=== PATIENT | female | born 1990 | race Caucasian/White ===

== ENCOUNTER 2019-03-09 23:03 | Day surgery (SDC) | payer BC, OTHER ==
--- NOTE | 2019-03-09 23:07 | PDOC ---
History of Present Illness - General Chief Complaint: Pain, Acute Stated Complaint: ABDOMINAL PAIN Time Seen by Provider: 03/09/19 23:06 - History of Present Illness Initial Comments: This otherwise healthy 29 y.o woman presents with 1 day history of periumbilical abdominal pain. Patient awakened with discomfort in the mid- abdomen which became somewhat more severe throughout the day. Mild nausea, but no vomiting/fever/chills/constipation. Was able to eat dinner in early evening without vomiting. No recent sick contacts or travel. No dysuria/frequency or hematuria Past History - Past Medical History Allergies/Adverse Reactions: Allergies Allergy/AdvReac Type Severity Reaction Status Date / Time No Known Allergies Allergy Verified 03/09/19 23:04 Home Medications: Ambulatory Orders NK [No Known Home Medication] 03/09/19 Review of Systems - Review of Systems Comments:: GENERAL/CONSTITUTIONAL: No fever or chills. No weakness. HEAD, EYES, EARS, NOSE AND THROAT: No change in vision. No ear pain or discharge. No sore throat. CARDIOVASCULAR: No chest pain or shortness of breath. RESPIRATORY: No cough, wheezing, or hemoptysis. GASTROINTESTINAL: No nausea, vomiting, diarrhea or constipation. GENITOURINARY: No dysuria, frequency, or change in urination. MUSCULOSKELETAL: No joint or muscle swelling or pain. No neck or back pain. SKIN: No rash NEUROLOGIC: No headache, vertigo, loss of consciousness, or change in strength/ sensation. ENDOCRINE: No increased thirst. No abnormal weight change. HEMATOLOGIC/LYMPHATIC: No anemia, easy bleeding, or history of blood clots. ALLERGIC/IMMUNOLOGIC: No hives or skin allergy. *Physical Exam - Physical Exam Comments: GENERAL: Awake, alert, and fully oriented, in no acute distress HEAD: No signs of trauma EYES: PERRLA, EOMI, sclera anicteric, conjunctiva clear ENT: Auricles normal inspection, hearing grossly normal, nares patent, oropharynx clear without exudates. Moist mucosa NECK: Normal ROM, supple, no lymphadenopathy, JVD, or masses LUNGS: Breath sounds equal, clear to auscultation bilaterally. No wheezes, and no crackles HEART: Regular rate and rhythm, normal S1 and S2, no murmurs, rubs or gallops ABDOMEN: Soft, normoactive bowel sounds. moderate RLQ tenderness No guarding, no rebound. No masses EXTREMITIES: Normal range of motion, no edema. No clubbing or cyanosis. No cords, erythema, or tenderness NEUROLOGICAL: Cranial nerves II through XII grossly intact. Normal speech, normal gait SKIN: Warm, Dry, normal turgor, no rashes or lesions noted. ED Treatment Course - LABORATORY CBC & Chemistry Diagram: 03/09/19 23:15 03/09/19 23:15 Medical Decision Making - Medical Decision Making 03/10/19 01:48 lab evaluation notable for WBC of 14,400 remainder of labs essentially normal except for evidence of mild pre-renal azotemia(bun19/cre1.0) patient received 1liter of NS IV and oral contrast for Abd/pelvic CT CT with oral and IV contrast: Preliminary interpretation by Imaging public relations associate: dilated appendix and minimally inflamed with no perforation or abscess. Remainder of CT is normal. Patient received 3.375g Zosyn IV and 1 gram Acetaminophen IV She requested [facility] for surgical consult. Case discussed by telephone with Dr Nielsen. He has accepted patient to his service and will see the patient in the AM. 03/10/19 02:37 Patient requested medication for recurrence of pain(was relieved by acetaminophen initially) and worsening of nausea. 30mg Toradol IV and Zofran 4mg IV given *DC/Admit/Observation/Transfer Diagnosis at time of Disposition: Acute appendicitis Qualifiers: Acute appendicitis type: unspecified acute appendicitis type Qualified Code(s) : K35.80 - Unspecified acute appendicitis - Discharge Dispostion Condition at time of disposition: Stable Decision to Admit order: Yes - Referrals - Patient Instructions - Post Discharge Activity
[2019-03-09 23:22] VITALS: BMI 27.4
[2019-03-09 23:26] LABS: BASO % 1.8 % (0-2.0); HEMATOCRIT 43.8 % (32.4-45.2); HEMOGLOBIN 14.8 GM/dl (10.7-15.3); LYMPH % 16.4 % (8-40); MCHC 33.9 g/dl (32.0-36.0); MEAN CELL VOLUME 88.4 fl (80-96); MEAN PLT VOLUME 9.1 fl (7.5-11.1); MONO % 5.2 % (3.8-10.2); NEUT % 74.6 % (42.8-82.8); PLATELET COUNT 293 K/MM3 (134-434); RBC 4.95 M/mm3 (3.60-5.2); RDW 12.8 % (11.6-15.6); WHITE BLOOD COUNT 14.4 K/mm3 (4.0-10.8)
[2019-03-09 23:29] LABS: HCG,QUALITATIVE URINE Negative
[2019-03-09 23:39] LABS: ALBUMIN 4.2 g/dl (3.4-5.0); ALK PHOS 55 U/L (45-117); ANION GAP 11 MMOL/L (8-16); BILIRUBIN,TOTAL 0.7 mg/dl (0.2-1); BLOOD UREA NITROGEN 19 mg/dl (7-18); CALCIUM 9.5 mg/dl (8.5-10); CHLORIDE 103 mmol/L (98-107); CO2 22 mmol/L (21-32); CREATININE 0.9 mg/dl (0.55-1.3); GLUCOSE,RANDOM 125 mg/dl (74-106); POTASSIUM 3.5 mmol/L (3.5-5.1); SGOT/AST 23 U/L (15-37); SGPT/ALT 37 U/L (13-61); SODIUM 136 mmol/L (136-145)
[2019-03-10] MEDS ORDERED: ACETAMINOPHEN 1000 MG/100 ML VIAL (NON FORMULARY) IVPB ONE (01:12)
[2019-03-10] MEDS ORDERED: ACETAMINOPHEN INJECTION 100 ML IVPB ONE (01:12)
[2019-03-10] MEDS ORDERED: PIPERACILLIN/TAZOBACTAM 3.375 GM VIAL IVPB ONE ×3 (01:50→21:41)
[2019-03-10] MEDS ORDERED: PIPERACILLIN/TAZOB 3.375 GM 3.375 GM in DEXTROSE 5%-WATER - 50 ML IVPB ONE (01:50)
[2019-03-10] MEDS ORDERED: ONDANSETRON 4 MG/2 ML VIAL ONE ×3 (02:16→15:10)
[2019-03-10] MEDS ORDERED: ONDANSETRON 4 MG/2 ML VIAL IVPUSH ONE ×3 (02:16→15:12)
[2019-03-10] MEDS ORDERED: KETOROLAC TROMETHAMINE 30 MG/1 ML VIAL IVPUSH ONE (02:16)
[2019-03-10] MEDS ORDERED: KETOROLAC TROMETHAMINE 30 MG/1 ML VIAL ONE ×2 (02:17→14:08)
[2019-03-10] MEDS ORDERED: SODIUM CHLORIDE 1,000 ML IV SCH ×2 (06:00→10:19)
[2019-03-10] MEDS ORDERED: PIPERACILLIN/TAZOB 3.375 GM 3.375 GM in DEXTROSE 5%-WATER - 50 ML IVPB SCH (08:15)
[2019-03-10] MEDS ORDERED: DEXTROSE 5%-WATER - 50 ML IVPB ONE ×2 (09:16→21:41)
[2019-03-10] MEDS: PIPERACILLIN/TAZOB 3.375 GM 3.375 GM in DEXTROSE 5%-WATER - 50 ML IVPB SCH ×3 (09:21→21:51)
[2019-03-10] MEDS ORDERED: ACETAMINOPHEN 1000 MG/100 ML VIAL (NON FORMULARY) IVPB PRN (09:42)
[2019-03-10] MEDS ORDERED: morphine CARPU-JECT 2 MG/1 ML DISP.SYRIN IVPUSH PRN (09:43)
--- NOTE | 2019-03-10 09:44 | HP ---
CHIEF COMPLAINT: Abdominal pain HISTORY OF PRESENT ILLNESS: 29 year-old female with no significant PMH presented to ED with periumbilical pain x 1 day. She awakened yesterday with discomfort in the mid-abdomen which became somewhat more severe throughout the day. She had mild nausea, but no fever, chills, or vomiting. The pain became progressively worse so she came to the ED. ER course was notable for: (1) WBC 14.4k (2) CTAP: acute appendicitis without abscess (3) Zosyn x 1 Recent Travel: No PAST MEDICAL HISTORY: None reported PAST SURGICAL HISTORY: None reported Social History: Smoking: current every day Alcohol: no Drugs: no Family History: Father with glioblastoma Allergies No Known Allergies Allergy (Verified 03/09/19 23:04) HOME MEDICATIONS: Home Medications Medication Instructions Recorded NK [No Known Home Medication] 03/09/19 REVIEW OF SYSTEMS CONSTITUTIONAL: Absent: fever, chills, diaphoresis, generalized weakness, malaise, loss of appetite, weight change HEENT: Absent: rhinorrhea, nasal congestion, throat pain, throat swelling, difficulty swallowing, mouth swelling, ear pain, eye pain, visual changes CARDIOVASCULAR: Absent: chest pain, syncope, palpitations, irregular heart rate, lightheadedness , peripheral edema RESPIRATORY: Absent: cough, shortness of breath, dyspnea with exertion, orthopnea, wheezing, stridor, hemoptysis GASTROINTESTINAL: +abdominal pain Absent: abdominal distension, nausea, vomiting, diarrhea, constipation, melena , hematochezia GENITOURINARY: Absent: dysuria, frequency, urgency, hesitancy, hematuria, flank pain, genital pain MUSCULOSKELETAL: Absent: myalgia, arthralgia, joint swelling, back pain, neck pain SKIN: Absent: rash, itching, pallor HEMATOLOGIC/IMMUNOLOGIC: Absent: easy bleeding, easy bruising, lymphadenopathy, frequent infections ENDOCRINE: Absent: unexplained weight gain, unexplained weight loss, heat intolerance, cold intolerance NEUROLOGIC: Absent: headache, focal weakness or paresthesias, dizziness, unsteady gait, seizure, mental status changes, bladder or bowel incontinence PSYCHIATRIC: Absent: anxiety, depression, suicidal or homicidal ideation, hallucinations. PHYSICAL EXAMINATION Vital Signs - 24 hr 03/09/19 03/10/19 03/10/19 23:17 02:45 03:18 Temperature 99 F 98 F 98 F Pulse Rate 94 H Pulse Rate [ 75 Left] Respiratory 16 16 16 Rate Blood Pressure 148/89 Blood Pressure 105/70 [Left] O2 Sat by Pulse 100 100 100 Oximetry (%) 03/10/19 06:00 Temperature 97.8 F Pulse Rate 72 Pulse Rate [ Left] Respiratory 18 Rate Blood Pressure 107/54 L Blood Pressure [Left] O2 Sat by Pulse 100 Oximetry (%) GENERAL: Awake, alert, and fully oriented, in no acute distress. HEAD: Normal with no signs of trauma. EYES: Pupils equal, round and reactive to light, extraocular movements intact, sclera anicteric, conjunctiva clear. No lid lag. EARS, NOSE, THROAT: Ears normal, nares patent, oropharynx clear without exudates. Moist mucous membranes. NECK: Normal range of motion, supple without lymphadenopathy, JVD, or masses. LUNGS: Breath sounds equal, clear to auscultation bilaterally. No wheezes, and no crackles. No accessory muscle use. HEART: Regular rate and rhythm, normal S1 and S2 without murmur, rub or gallop. ABDOMEN: RLQ tenderness with rebound MUSCULOSKELETAL: Normal range of motion at all joints. No bony deformities or tenderness. No CVA tenderness. UPPER EXTREMITIES: 2+ pulses, warm, well-perfused. No cyanosis. No clubbing. No peripheral edema. LOWER EXTREMITIES: 2+ pulses, warm, well-perfused. No calf tenderness. No peripheral edema. NEUROLOGICAL: Cranial nerves II-XII intact. Normal speech. Laboratory Results - last 24 hr 03/09/19 03/09/19 03/09/19 23:15 23:15 23:15 WBC 14.4 H RBC 4.95 Hgb 14.8 Hct 43.8 MCV 88.4 MCH 30.0 MCHC 33.9 RDW 12.8 Plt Count 293 MPV 9.1 Absolute Neuts (auto) 10.7 Neutrophils % 74.6 Lymphocytes % 16.4 Monocytes % 5.2 Eosinophils % 2.0 Basophils % 1.8 Sodium 136 Potassium 3.5 Chloride 103 Carbon Dioxide 22 Anion Gap 11 BUN 19 H Creatinine 0.9 Creat Clearance w eGFR 74.03 Random Glucose 125 H Calcium 9.5 Total Bilirubin 0.7 AST 23 ALT 37 Alkaline Phosphatase 55 Total Protein 7.0 Albumin 4.2 Urine Color Yellow Urine Appearance Clear Urine pH 6.0 Urine Protein Negative Urine Glucose (UA) Negative Urine Ketones Negative Urine Blood Negative Urine Nitrite Negative Urine Bilirubin Negative Urine Urobilinogen 0.2 Ur Leukocyte Esterase Negative Urine HCG, Qual Negative ASSESSMENT/PLAN 29 year-old female with no significant PMH here for acute appendicitis. Acute appendicitis --plan is for OR today --continue Zosyn --continue IV fluids --NPO Dispo: full code. Visit type - Emergency Visit Emergency Visit: Yes Care time: The patient presented to the Emergency Department on the above date and was hospitalized for further evaluation of their emergent condition. - New Patient This patient is new to me today: Yes Date on this admission: 03/10/19 - Critical Care Critical Care patient: No
[2019-03-10] MEDS ORDERED: ONDANSETRON 4 MG/2 ML VIAL IVPUSH PRN ×2 (10:00→15:15)
[2019-03-10] MEDS ORDERED: ROCURONIUM BROMIDE 50 MG/5 ML VIAL ONE (13:31)
[2019-03-10] MEDS ORDERED: fentaNYL CITRATE 250 MCG/5 ML VIAL ONE (13:31)
[2019-03-10] MEDS ORDERED: MIDAZOLAM HCL 2 MG/2 ML SINGLE DOSE VIAL ONE (13:31)
[2019-03-10] MEDS ORDERED: PROPOFOL 20 ML ONE ×3 (13:31→13:32)
[2019-03-10] MEDS ORDERED: LIDOCAINE HCL/PF 2% SDV 5ML VIAL ONE (13:32)
--- NOTE | 2019-03-10 13:48 | PN ---
Progress Note (short form) - Note Progress Note: surgery pt seen and examined. full consult dictated. 29f with 24hour rlq pain, leukocytosis, and ct evidence of appendicitis. on exam rlq tenderness with rebound. Plan- clinically acute appendicitis. agree with admission and zosyn. for surgery.
[2019-03-10] MEDS ORDERED: oxyCODONE HCL 5 MG TABLET PO PRN ×3 (13:49→15:15)
[2019-03-10] MEDS ORDERED: morphine SULFATE 4 MG/ML VIAL IVPB PRN (13:49)
--- NOTE | 2019-03-10 13:52 | OP ---
Operative Note - Note: Operative Date: 03/10/19 Pre-Operative Diagnosis: acute appendicitis Operation: laparoscopic appendectomy Findings: thickened, inflamed, non perforated appendix Post-Operative Diagnosis: Same as Pre-op Surgeon: Camilo Shah Anesthesiologist/SHOULDER SAWYER: Johan Boss Anesthesia: General Specimens Removed: appendix Estimated Blood Loss (mls): 10 Operative Report Dictated: Yes
[2019-03-10] MEDS ORDERED: DEXAMETHASONE SOD PHOSPHATE 4 MG/1 ML VIAL ONE (14:08)
--- NOTE | 2019-03-10 14:20 | CONS ---
DATE OF CONSULTATION: 03/10/2019 REASON FOR CONSULTATION: Acute appendicitis. This is an emergency room consultation. BRIEF HISTORY: This is a 29-year-old female who presented to [facility] with less than 24 hours of right lower quadrant abdominal pain. She was noted to have an elevated white blood cell count and had a CAT scan of her abdomen and pelvis which was consistent with acute appendicitis. She was admitted to the hospital, started on Zosyn antibiotic. Request is made for surgical evaluation. Overnight she still has pain. She has had no fever. She has no nausea, no vomiting. PAST MEDICAL HISTORY: Negative. PAST SURGICAL HISTORY: Nil. SOCIAL HISTORY: Positive for tobacco. She has been encouraged to quit. FAMILY HISTORY: Positive for a father with a glioblastoma. She takes no medications. She has no known drug allergies. REVIEW OF SYSTEMS: General: Denies fever, malaise. Cardiac: Denies chest pain or palpitations. Respiratory: Denies shortness of breath or wheeze. Gastrointestinal: As stated in HPI. Denies diarrhea. Denies blood in her stool. Denies recent weight loss. Genitourinary: Denies dysuria. Musculoskeletal: Denies joint pain. Psychiatric: Denies depression, hearing voices. PHYSICAL EXAMINATION: General: This is a well-developed, well-nourished 29-year-old female in n distress.Vital Signs: She is afebrile. HEENT: Her head is normocephalic. Sclerae anicteric. Neck: Supple. Chest: Clear. Abdomen: Soft. She has localized right lower quadrant tenderness with rebound. She has no surgical scars. No obvious hernias. Extremities: Have no edema. On review of her laboratory white blood cell count is elevated at 14,000. Her chemistries are unremarkable. Her urinalysis is unremarkable. On review of her imaging she has a CAT scan of her abdomen and pelvis which shows findings consistent with acute appendicitis, uncomplicated. ASSESSMENT: This is a 29-year-old female with right lower quadrant pain, right lower quadrant tenderness, rebound, leukocytosis, CAT scan evidence of acute appendicitis. Clinically this is acute appendicitis. I agree with admission. I agree with Zosyn antibiotic to cover E coli and other enteric as well as gram-negative and anaerobic bacteria. At this point would recommend moving in the direction of surgery. Risks and benefits of surgery have been explained to patient in detail. These are including but not limited to the possibility of conversion to open, the possibility of injury to viscera or bladder, the possibility of blood loss requiring blood transfusion, possibility of future obstruction, possibility of future hernia, plus the multiple medical risks including but not limited to cardiac, neurologic, pulmonary and vascular complications, even . Patient understands these risks and is agreeable to surgery. Patient has also been offered medical management for appendicitis and declines. She prefers the more definitive nature of surgery, the likely decreased length of stay, the ability to pathologically evaluate the appendix and prevention of future recurrence. GEENT TREVIZO M.D. [id number]
[2019-03-10] MEDS ORDERED: GLYCOPYRROLATE 0.2 MG/1 ML VIAL ONE (14:38)
[2019-03-10] MEDS ORDERED: PROMETHAZINE HCL 25 MG/1 ML VIAL IVPB PRN (15:15)
--- NOTE | 2019-03-10 20:25 | OP ---
DATE OF OPERATION: 03/10/2019 PREOPERATIVE DIAGNOSIS: Acute appendicitis. POSTOPERATIVE DIAGNOSIS: Acute appendicitis. PROCEDURE: Laparoscopic appendectomy, lavage. SURGEON: Camilo Shah DO SALES OUTFITTER: None. ANESTHESIOLOGIST: Johan Boss MD SPECIMEN: Appendix. INTRAOPERATIVE FINDINGS: A thick and inflamed, non-perforated appendix. BLOOD LOSS: Minimal. DRAINS: None. COMPLICATIONS: None. DISPOSITION: Recovery room in stable condition. BRIEF HISTORY: This 29-year-old female presented to [facility] with signs and symptoms of acute appendicitis and CAT scan evidence to support that. She presents now for surgery. DESCRIPTION OF PROCEDURE: The patient was placed in supine position. After general anesthesia was initiated, Sharp catheter was inserted, and the abdomen was prepped and draped in sterile fashion. The patient was already on Zosyn antibiotic. Next, a vertical incision was made infraumbilical with scalpel used to go through skin and subcutaneous tissue. The fascia was lifted with Foreign clamp and incised vertically. The peritoneum was entered bluntly. Next, a 0 Vicryl stitch was placed across the fascial defect and used to secure the Milagro trocar. Pneumoperitoneum was then created, followed by insertion of two 5-mm trocars, one suprapubic and one in the left lower quadrant. Attention was turned to the right lower quadrant. The appendix was seen. It was thick and inflamed. The appendix was wrapped over it, and it was carefully teased off. The ligament of Treves was also attached to the appendix, and this was divided with LigaSure device. The cecal cap was also wrapped around the appendix. This was carefully teased off. A window was made at this space. The LigaSure device was used to divide the mesoappendix with multiple welds. The Endo JODY ultra 60-load, purple-load stapler was used to divide the appendix at its base and 1 firing. The staple line was inspected. It was intact. There was no bleeding. No breaks. No sign of ischemia. The appendix was placed in a specimen bag, removed through the infraumbilical trocar site, and sent to Pathology marked as specimen. A limited lavage was done, and all return was clear. Trocars were removed under direct visualization. No bleeding was noted. Next, the fascia at the infraumbilical trocar site was closed with multiple interrupted 0 Vicryl sutures. The 3 skin incisions were closed with Biosyn. Dermabond dressing was placed. Overall, the patient tolerated the procedure well. Sharp catheter, placed at the beginning of the operation, was removed at the end. DO GUICHO KAYE/[id number] MTDD
[2019-03-11] MEDS ORDERED: DEXTROSE 5%-WATER - 50 ML IVPB ONE ×3 (02:54→09:48)
[2019-03-11] MEDS ORDERED: PIPERACILLIN/TAZOBACTAM 3.375 GM VIAL IVPB ONE ×3 (02:54→09:48)
[2019-03-11] MEDS: PIPERACILLIN/TAZOB 3.375 GM 3.375 GM in DEXTROSE 5%-WATER - 50 ML IVPB SCH ×2 (03:15→09:30)
[2019-03-11] MEDS ORDERED: SODIUM CHLORIDE 1,000 ML IV STA (06:40)
--- NOTE | 2019-03-11 08:42 | DS ---
Physical Exam: SUBJECTIVE: Patient seen and examined at bedside. Eating soup. Feels well, no pain, no n/v. OBJECTIVE: Vital Signs Period Temp Pulse Resp BP Sys/Pierce Pulse Ox Last 24 Hr 97.4 F-98.3 F 60-100 10-18 93-109/43-69 97-100 PHYSICAL EXAM GENERAL: The patient is awake, alert, and fully oriented, in no acute distress. LUNGS: Breath sounds equal, clear to auscultation bilaterally, no wheezes, no crackles, no accessory muscle use. HEART: Regular rate and rhythm, S1, S2 without murmur, rub or gallop. ABDOMEN: Soft, nondistended, three surgical ports with glue, dry, intact, no surrounding erythema, fluctuance EXTREMITIES: 2+ pulses, warm, well-perfused, no edema. NEUROLOGICAL: Cranial nerves II through XII grossly intact. Normal speech, steady gait LABS CBCD WBC 16.4 K/mm3 (4.0-10.8) H 03/11/19 07:42 RBC 3.93 M/mm3 (3.60-5.2) 03/11/19 07:42 Hgb 12.1 GM/dl (10.7-15.3) 03/11/19 07:42 Hct 34.7 % (32.4-45.2) D 03/11/19 07:42 MCV 88.4 fl (80-96) 03/11/19 07:42 MCHC 34.8 g/dl (32.0-36.0) 03/11/19 07:42 RDW 13.1 % (11.6-15.6) 03/11/19 07:42 Plt Count 238 K/MM3 (134-434) 03/11/19 07:42 MPV 9.4 fl (7.5-11.1) 03/11/19 07:42 CMP Sodium 139 mmol/L (136-145) 03/11/19 07:42 Potassium 3.8 mmol/L (3.5-5.1) 03/11/19 07:42 Chloride 111 mmol/L (98-107) H 03/11/19 07:42 Carbon Dioxide 21 mmol/L (21-32) 03/11/19 07:42 Anion Gap 7 MMOL/L (8-16) L 03/11/19 07:42 BUN 11 mg/dl (7-18) 03/11/19 07:42 Creatinine 0.9 mg/dl (0.55-1.3) 03/11/19 07:42 Creat Clearance w eGFR 74.03 (>60) 03/11/19 07:42 Calcium 8.6 mg/dl (8.5-10) 03/11/19 07:42 Total Bilirubin 0.5 mg/dl (0.2-1) 03/11/19 07:42 AST 15 U/L (15-37) 03/11/19 07:42 ALT 25 U/L (13-61) 03/11/19 07:42 Alkaline Phosphatase 46 U/L (45-117) 03/11/19 07:42 Total Protein 5.8 g/dl (6.4-8.2) L 03/11/19 07:42 Albumin 3.1 g/dl (3.4-5.0) L 03/11/19 07:42 HOSPITAL COURSE: Date of Admission:03/10/19 Date of Discharge: 03/11/19 Pre hospital course 29 year-old female with no significant PMH presented to ED with periumbilical pain x 1 day. She awakened with discomfort in the mid-abdomen which became somewhat more severe throughout the day. She had mild nausea, but no fever, chills, or vomiting. The pain became progressively worse so she came to the ED. ER course (1) WBC 14.4k (2) CTAP: acute appendicitis without abscess (3) Zosyn x 1 Subsequent hospital course 29 year-old female with no significant PMH here for acute appendicitis. Acute appendicitis --POD#1 s/p laparoscopic appendectomy; thickened, inflamed, not perforated --treated with Zosyn while inpatient, discharged on augmentin x 5 days --uncomplicated post-operative course Minutes to complete discharge: 35 Discharge Summary Reason For Visit: ACUTE APPENDICITIS Current Active Problems Acute appendicitis (Acute) Condition: Improved - Instructions Diet, Activity, Other Instructions: You need to follow up with your surgeon, Dr. Shah, in two weeks. His contact information is enclosed in this discharge packet. Take Tyelenol for pain, do not exceed 4,000mg in any 24 hour period. You may shower. Do not lift anything heavier than 5 pounds until you see Dr. Shah. Return to the emergency department for any new or worsening symptoms. Referrals: Camilo Shah MD [Staff Physician] - Disposition: HOME - Home Medications Comprehensive Discharge Medication List: Ambulatory Orders NK [No Known Home Medication] 03/09/19 This patient is new to me today: No Emergency Visit: Yes Care time: The patient presented to the Emergency Department on the above date and was hospitalized for further evaluation of their emergent condition. Critical Care patient: No - Discharge Referral Referred to [facility] No
[2019-03-11 08:50] LABS: HEMATOCRIT 34.7 % (32.4-45.2); HEMOGLOBIN 12.1 GM/dl (10.7-15.3); MCH 30.8 pg (25.7-33.7); MCHC 34.8 g/dl (32.0-36.0); MEAN CELL VOLUME 88.4 fl (80-96); MEAN PLT VOLUME 9.4 fl (7.5-11.1); PLATELET COUNT 238 K/MM3 (134-434); RBC 3.93 M/mm3 (3.60-5.2); RDW 13.1 % (11.6-15.6); WHITE BLOOD COUNT 16.4 K/mm3 (4.0-10.8)
[2019-03-11 09:10] LABS: ALBUMIN 3.1 g/dl (3.4-5.0); ALK PHOS 46 U/L (45-117); ANION GAP 7 MMOL/L (8-16); BILIRUBIN,TOTAL 0.5 mg/dl (0.2-1); BLOOD UREA NITROGEN 11 mg/dl (7-18); CALCIUM 8.6 mg/dl (8.5-10); CHLORIDE 111 mmol/L (98-107); CO2 21 mmol/L (21-32); CREATININE 0.9 mg/dl (0.55-1.3); GLUCOSE,RANDOM 122 mg/dl (74-106); MAGNESIUM 2.1 mg/dL (1.8-2.4); POTASSIUM 3.8 mmol/L (3.5-5.1); SGOT/AST 15 U/L (15-37); SGPT/ALT 25 U/L (13-61); SODIUM 139 mmol/L (136-145); TOT PROT 5.8 g/dl (6.4-8.2)
[2019-03-11 09:56] VITALS: BP 108/61; PULSE 71; TEMP 99
[2019-03-11] MEDS ORDERED: ENOXAPARIN NA (PORCINE) 40 MG/0.4 ML DISP.SYRIN SQ SCH (10:00)
[2019-03-11] MEDS ORDERED: PANTOPRAZOLE SODIUM 40 MG VIAL IVPUSH SCH (10:00)
[2019-03-11 11:13] LABS: PLATELET ESTIMATE SLT INCREASE
--- NOTE | 2019-03-11 12:52 | PN ---
Progress Note (short form) - Note Progress Note: Anesthesia post op note POD#1, S/p Lap appendectomy under general anesthesia. VSS. Pain 0/10. No apparent post anesthesia complications. Signed off.
== END 2019-03-11 13:25 | disposition home or self-care (01) ==
LOC: FER 23:03 → FM/S 03-10 02:45 → UNDOADMIN 03-10 02:45 → FASUSAT 03-10 09:54 → FM/S 03-10 09:54 → FASUSAT 03-11 13:25
PROVIDERS: ATTEND Nurse Practitioner Acute Care
PROC: 0DTJ4ZZ Resection of Appendix, Percutaneous Endoscopic Approach (ICD-10-PCS; principal; 2019-03-10 14:22)
DX: K35.80 Unspecified acute appendicitis (principal)
CPT/HCPCS: 36415; 74177-TC; 80053; 81003; 83735; 84703; 85025; 86850; 86900; 86901; 87086; 88304-TC; 94760; 99282-25; J0131; J7030

== ENCOUNTER 2021-05-20 20:50 | Inpatient (IN) | payer BC, OTHER ==
[2021-05-20 22:53] LABS: INR 0.85 (0.83-1.09); PROTHROMBIN TIME (PATIENT) 10.3 SEC (9.7-13.0)
[2021-05-20 22:56] LABS: ACTIVATED PTT 24.3 SECONDS (25.2-36.5)
[2021-05-20 23:05] LABS: CALCIUM 8.3 mg/dL (8.5-10.1)
[2021-05-20 23:06] LABS: BLOOD UREA NITROGEN 13.7 mg/dL (7-18)
[2021-05-20] MEDS ORDERED: PROMETHAZINE HCL 25 MG/1 ML VIAL IVPUSH ONE (23:08)
[2021-05-20] MEDS ORDERED: BUTORPHANOL TARTRATE 1 MG/ML VIAL IVPUSH PRN (23:08)
[2021-05-20 23:09] LABS: CREATININE 0.8 mg/dL (0.55-1.3)
[2021-05-20] MEDS ORDERED: DEXTROSE 5%-LACTATED RINGERS 1,000 ML IV SCH (23:15)
[2021-05-20 23:48] VITALS: BMI 33.1
[2021-05-21 00:02] LABS: HIV INTERPRETATION NEGATIVE (NEGATIVE)
[2021-05-21] MEDS ORDERED: OXYTOCIN 30 UNITS in 0.9% NS 30 UNIT/500 ML INFUS.BAG IVPB ONE (08:09)
[2021-05-21] MEDS: OXYTOCIN 30 UNITS in 0.9% NS 30 UNIT/500 ML INFUS.BAG IVPB SCH (08:30)
[2021-05-21] MEDS ORDERED: BUTORPHANOL TARTRATE 2 MG/ML VIAL ONE (09:34)
[2021-05-21] MEDS ORDERED: PROMETHAZINE HCL 25 MG/1 ML VIAL ONE (09:34)
[2021-05-21] MEDS ORDERED: PCA PUMP NR ONE ×2 (11:49→21:25)
[2021-05-21] MEDS ORDERED: FENTANYL/BUPIVACAINE/NS/PF - PCEA - 50 ML DISP.SYRIN EP ONE ×4 (11:49→21:24)
[2021-05-21] MEDS ORDERED: NALOXONE HCL 0.4 MG/ML VIAL IVPUSH PRN (12:00)
[2021-05-21] MEDS ORDERED: FENTANYL/BUPIVACAINE/NS/PF - PCEA - 50 ML DISP.SYRIN EP SCH (12:00)
[2021-05-21] MEDS ORDERED: BUPIVACAINE HCL/PF 0.25% (2.5MG/ML) 10 ML VIAL ONE ×2 (12:07→18:51)
[2021-05-21] MEDS ORDERED: ELECTROLYTE-148 SOLN 1,000 ML IV SCH (12:15)
[2021-05-21 12:27] LABS: BASO % 0.8 % (0-2.0); EOS % 0.3 % (0-4.5); HEMATOCRIT 36.8 % (32.4-45.2); HEMOGLOBIN 11.7 GM/dL (10.7-15.3); MCH 25.3 pg (25.7-33.7); MCHC 31.8 g/dl (32.0-36.0); MEAN CELL VOLUME 79.7 fl (80-96); MEAN PLT VOLUME 8.1 fl (7.5-11.1); MONO % 7.6 % (3.8-10.2); NEUT % 78.3 % (42.8-82.8); PLATELET COUNT 293 10^3/uL (134-434); RBC 4.62 M/mm3 (3.60-5.2); RDW 16.5 % (11.6-15.6); WHITE BLOOD COUNT 11.9 K/mm3 (4.0-10.0)
[2021-05-21] MEDS ORDERED: AMPICILLIN SODIUM 2 GM VIAL ONE (21:22)
[2021-05-21] MEDS ORDERED: AMPICILLIN - 2 GM in SODIUM CHLORIDE 100 ML IVPB ONE (21:35)
[2021-05-21] MEDS ORDERED: OXYTOCIN 20 UNITS in 0.9% NS 20 UNIT/1,000 ML INFUS.BAG IV ONE (22:27)
[2021-05-21] MEDS ORDERED: LIDOCAINE HCL 1% PRESERVATIVE FREE - 30ML VIAL ONE (22:28)
[2021-05-22] MEDS ORDERED: BENZOCAINE 20% 57 GM BOTTLE TP PRN (00:03)
[2021-05-22] MEDS ORDERED: WITCH HAZEL 50% (TUCKS) 40 PAD/JAR PAD TP PRN (00:03)
[2021-05-22] MEDS ORDERED: BISACODYL 10 MG SUPP.RECT RC PRN (00:03)
[2021-05-22] MEDS ORDERED: BENZOCAINE 28 GM HEMORRHOIDAL OINTMENT TP PRN (00:03)
[2021-05-22] MEDS ORDERED: METHYLERGONOVINE MALEATE 0.2 MG/1 ML AMP IM PRN (00:03)
[2021-05-22] MEDS ORDERED: OXYTOCIN 20 UNITS in 0.9% NS 20 UNIT/1,000 ML INFUS.BAG IV SCH (00:15)
[2021-05-22] MEDS ORDERED: OXYTOCIN 20 UNITS in 0.9% NS 20 UNIT/1,000 ML INFUS.BAG IV ONE (00:55)
[2021-05-22 01:19] LABS: CORD BASE EXCESS -11.3 mmol/L (0-2); CORD HCO3 17.8 mmHg (20-29); CORD PCO2 51.4 mmHg (30-78); CORD pH 7.157 (7.14-7.44)
[2021-05-22 01:21] LABS: CORD PCO2 71.5 mmHg (30-78); CORD pH 7.043 (7.14-7.44)
[2021-05-22] MEDS ORDERED: AMPICILLIN - 1 GM in SODIUM CHLORIDE 100 ML IVPB SCH (01:30)
[2021-05-22] MEDS ORDERED: ACETAMINOPHEN 325 MG TABLET (FP) ONE ×2 (04:02→09:01)
[2021-05-22] MEDS: IBUPROFEN 600 MG TABLET (FP) PO PRN ×3 (04:05→20:07)
[2021-05-22] MEDS: ACETAMINOPHEN 325 MG TABLET (FP) PO PRN ×3 (04:05→20:07)
[2021-05-22] MEDS: OXYTOCIN 30 UNITS in 0.9% NS 30 UNIT/500 ML INFUS.BAG IVPB SCH (08:41)
[2021-05-22] MEDS ORDERED: IBUPROFEN 600 MG TABLET (FP) PO ONE (09:01)
[2021-05-22] MEDS ORDERED: FERROUS SO4 325 MG TABLET (FP) ONE (09:02)
[2021-05-22] MEDS ORDERED: PRENATAL VITAMINS W/ FOLIC ACID TABLET (FP) PO ONE (09:02)
[2021-05-22] MEDS: FERROUS SO4 325 MG TABLET (FP) PO SCH ×2 (09:07→21:07)
[2021-05-22] MEDS: PRENATAL VITAMINS W/ FOLIC ACID TABLET (FP) PO SCH (09:07)
[2021-05-23] MEDS: IBUPROFEN 600 MG TABLET (FP) PO PRN ×2 (00:14→10:35)
[2021-05-23] MEDS: ACETAMINOPHEN 325 MG TABLET (FP) PO PRN ×2 (00:14→10:35)
[2021-05-23 08:06] LABS: BASO % 0.4 % (0-2.0); EOS % 1.7 % (0-4.5); HEMATOCRIT 23.4 % (32.4-45.2); HEMOGLOBIN 7.5 GM/dL (10.7-15.3); LYMPH % 18.3 % (8-40); MCH 25.6 pg (25.7-33.7); MEAN CELL VOLUME 79.9 fl (80-96); MEAN PLT VOLUME 7.8 fl (7.5-11.1); MONO % 7.3 % (3.8-10.2); NEUT % 72.3 % (42.8-82.8); PLATELET COUNT 223 10^3/uL (134-434); RBC 2.93 M/mm3 (3.60-5.2); RDW 16.7 % (11.6-15.6); WHITE BLOOD COUNT 14.6 K/mm3 (4.0-10.0)
[2021-05-23] MEDS: FERROUS SO4 325 MG TABLET (FP) PO SCH (10:31)
[2021-05-23] MEDS: PRENATAL VITAMINS W/ FOLIC ACID TABLET (FP) PO SCH (10:31)
[2021-05-23 11:56] VITALS: BP 118/74; PULSE 88; TEMP 98.4
[2021-05-23] MEDS ORDERED: SENNOSIDES/DOCUSATE COMBO (SENNA PLUS) TABLET (UD) PO PRN (22:00)
== END 2021-05-23 15:15 | disposition home or self-care (01) | DRG 807 ==
LOC: JDEL 20:50 → JLDR 21:15 → JDEL 21:20 → J3W 05-22 15:38
PROVIDERS: ADMIT Obstetrics & Gynecology; ATTEND Obstetrics & Gynecology
PROC: 10E0XZZ Delivery of Products of Conception, External Approach (ICD-10-PCS; principal; 2021-05-21)
PROC: 0W8NXZZ Division of Female Perineum, External Approach (ICD-10-PCS; 2021-05-21)
DX: O42.02 Full-term premature rupture of membranes, onset of labor within 24 hours of rupture (principal); Z37.0 Single live birth; Z3A.40 40 weeks gestation of pregnancy
CPT/HCPCS: 36415; 36600; 59409; 80048; 82803; 85025; 85610; 85730; 86780; 86850; 86900; 86901; 87389; C9803; U0003; U0005

== ENCOUNTER 2021-09-30 22:44 | Emergency (ER) | payer BC ==
[2021-09-30] MEDS ORDERED: LIDOCAINE HCL 2% (50ML VIAL) INF ONE (22:53)
[2021-09-30 23:00] VITALS: BP 132/78; PULSE 76; TEMP 99.2; BMI 25.7
[2021-09-30] MEDS ORDERED: CEPHALEXIN MONOHYDRATE 500 MG CAPSULE (UD) PO ONE (23:24)
[2021-09-30] MEDS ORDERED: IBUPROFEN 600 MG TABLET (FP) PO ONE ×2 (23:26→23:31)
[2021-09-30] MEDS ORDERED: CEPHALEXIN MONOHYDRATE 500 MG CAPSULE (UD) ONE (23:31)
== END 2021-09-30 23:34 | disposition home or self-care (01) ==
LOC: FER 22:44
DX: S60.10XA Contusion of unspecified finger with damage to nail, initial encounter (principal)
CPT/HCPCS: 99283-25

== ENCOUNTER 2023-03-28 04:00 | Inpatient (IN) | payer BC ==
[2023-03-28] MEDS ORDERED: ELECTROLYTE-148 SOLN 1,000 ML IV SCH (05:00)
[2023-03-28 05:06] VITALS: BMI 33.8
[2023-03-28 05:33] LABS: BASO % 0.6 % (0-2.0); EOS % 0.9 % (0-4.5); HEMATOCRIT 34.1 % (32.4-45.2); HEMOGLOBIN 11.8 GM/dL (10.7-15.3); LYMPH % 20.6 % (8-40); MCH 27.8 pg (25.7-33.7); MCHC 34.6 g/dl (32.0-36.0); MEAN CELL VOLUME 80.3 fl (80-96); MEAN PLT VOLUME 9.3 fl (7.5-11.1); MONO % 9.6 % (3.8-10.2); NEUT % 68.3 % (42.8-82.8); PLATELET COUNT 224 10^3/uL (134-434); RBC 4.25 M/mm3 (3.60-5.2); RDW 15.9 % (11.6-15.6); WHITE BLOOD COUNT 8.8 K/mm3 (4.0-10.0)
[2023-03-28 06:27] LABS: INR 0.9 (0.83-1.09); PROTHROMBIN TIME (PATIENT) 10.4 SEC (9.7-13.0)
[2023-03-28 06:29] LABS: POTASSIUM 4.4 mmol/L (3.5-5.1)
[2023-03-28 06:30] LABS: ACTIVATED PTT 25.8 SECONDS (25.2-36.5)
[2023-03-28 06:33] LABS: BLOOD UREA NITROGEN 18.4 mg/dL (7-18)
[2023-03-28 06:37] LABS: CREATININE 0.7 mg/dL (0.55-1.3)
[2023-03-28 06:38] LABS: CALCIUM 9.1 mg/dL (8.5-10.1)
[2023-03-28] MEDS ORDERED: OXYTOCIN 30 UNITS in 0.9% NS 30 UNIT/500 ML INFUS.BAG IVPB SCH (08:00)
[2023-03-28] MEDS: ELECTROLYTE-148 SOLN 1,000 ML IV SCH ×2 (11:00→13:45)
[2023-03-28] MEDS ORDERED: FENTANYL/BUPIVACAINE/NS/PF - PCEA - 50 ML DISP.SYRIN EP ONE ×3 (11:01→18:42)
[2023-03-28] MEDS: FENTANYL/BUPIVACAINE/NS/PF - PCEA - 50 ML DISP.SYRIN EP SCH ×3 (11:25→18:45)
[2023-03-28] MEDS ORDERED: NALOXONE HCL 0.4 MG/ML VIAL IVPUSH PRN (11:36)
[2023-03-28] MEDS ORDERED: FENTANYL CITRATE/PF 50 MCG/ML VIAL ONE ×2 (12:20→13:11)
[2023-03-28] MEDS ORDERED: LIDO 2%/EPI 1:200000 PRESRVFRE (20 ML SDVIAL) ONE (13:04)
[2023-03-28] MEDS ORDERED: BUPIVACAINE HCL/PF 0.25% (2.5MG/ML) 10 ML VIAL ONE (13:12)
[2023-03-28 14:10] LABS: POC NITRAZINE POS
[2023-03-28] MEDS ORDERED: OXYTOCIN 20 UNITS in 0.9% NS 20 UNIT/1,000 ML INFUS.BAG IV ONE (19:08)
[2023-03-28] MEDS ORDERED: LIDOCAINE HCL 1% PRESERVATIVE FREE - 30ML VIAL ONE (19:08)
[2023-03-28 20:24] LABS: CORD HCO3 22.1 mmHg (20-29); CORD PCO2 48.1 mmHg (30-78); CORD pH 7.281 (7.14-7.44)
[2023-03-28 20:26] LABS: CORD HCO3 26.3 mmHg (20-29); CORD pH 7.253 (7.14-7.44)
[2023-03-28 20:49] VITALS: RESP 18
[2023-03-28] MEDS ORDERED: WITCH HAZEL 50% (TUCKS) 40 PAD/JAR PAD TP PRN (21:05)
[2023-03-28] MEDS ORDERED: BENZOCAINE 20% 57 GM BOTTLE TP PRN (21:05)
[2023-03-28] MEDS ORDERED: BISACODYL 10 MG SUPP.RECT RC PRN (21:05)
[2023-03-28] MEDS ORDERED: oxyCODONE HCL 5 MG TABLET PO PRN (21:05)
[2023-03-28] MEDS ORDERED: ACETAMINOPHEN 325 MG TABLET (FP) PO PRN (21:05)
[2023-03-28] MEDS ORDERED: BENZOCAINE 28 GM HEMORRHOIDAL OINTMENT TP PRN (21:05)
[2023-03-28] MEDS ORDERED: METHYLERGONOVINE MALEATE 0.2 MG/1 ML AMP IM PRN (21:05)
[2023-03-28] MEDS ORDERED: METHYLERGONOVINE MALEATE 0.2 MG/1 ML AMP IM ONE (21:06)
[2023-03-28] MEDS ORDERED: OXYTOCIN 20 UNITS in 0.9% NS 20 UNIT/1,000 ML INFUS.BAG IV SCH (21:15)
[2023-03-29] MEDS: IBUPROFEN 600 MG TABLET (FP) PO PRN ×3 (00:12→21:35)
[2023-03-29 08:04] LABS: BASO % 0.6 % (0-2.0); EOS % 0.5 % (0-4.5); HEMATOCRIT 30.9 % (32.4-45.2); HEMOGLOBIN 10.4 GM/dL (10.7-15.3); LYMPH % 16.2 % (8-40); MCH 27.2 pg (25.7-33.7); MCHC 33.5 g/dl (32.0-36.0); MEAN CELL VOLUME 81.1 fl (80-96); MEAN PLT VOLUME 9.1 fl (7.5-11.1); MONO % 8.2 % (3.8-10.2); NEUT % 74.5 % (42.8-82.8); PLATELET COUNT 176 10^3/uL (134-434); RBC 3.81 M/mm3 (3.60-5.2); RDW 16.5 % (11.6-15.6); WHITE BLOOD COUNT 12.7 K/mm3 (4.0-10.0)
[2023-03-29] MEDS ORDERED: SENNOSIDES/DOCUSATE COMBO (SENNA PLUS) TABLET (UD) PO PRN (22:00)
[2023-03-30] MEDS: IBUPROFEN 600 MG TABLET (FP) PO PRN (08:22)
[2023-03-30 10:29] VITALS: BP 129/71; PULSE 92; TEMP 97.9
== END 2023-03-30 14:15 | disposition home or self-care (01) | DRG 807 ==
LOC: JLDR 04:00 → J3W 22:00
PROVIDERS: ADMIT Obstetrics & Gynecology; ATTEND Obstetrics & Gynecology
PROC: 10E0XZZ Delivery of Products of Conception, External Approach (ICD-10-PCS; principal; 2023-03-28)
PROC: 0W8NXZZ Division of Female Perineum, External Approach (ICD-10-PCS; 2023-03-28)
DX: O42.02 Full-term premature rupture of membranes, onset of labor within 24 hours of rupture (principal); O69.81X0 Labor and delivery complicated by cord around neck, without compression, not applicable or unspecified; O99.214 Obesity complicating childbirth; E66.9 Obesity, unspecified; Z37.0 Single live birth; Z3A.40 40 weeks gestation of pregnancy
CPT/HCPCS: 36415; 36600; 80048; 82803; 83986-QW; 85025; 85610; 85730; 86780; 86850; 86900; 86901; C9803-CS; U0003; U0005